=== PATIENT | male | born 1940 | race Caucasian/White ===

== ENCOUNTER 2016-08-27 17:42 | Observation (INO) | payer OTHER ==
--- NOTE | 2016-08-27 18:06 | EDPHY ---
H & P Time Seen by Provider: 08/27/16 18:05 HPI/ROS: Chief complaint. Chest pain HPI. 76-year-old male with history of coronary artery disease and coronary artery bypass in November 2015 presents with chest pain that waxes and wanes beginning at 2:00 p.m.. He notes symptoms seem to build up with belching and then be relieved. Slightly worse with full inspiration. Not worse with exertion. The pain is described as left anterior chest and sharp. No radiation. No shortness of breath. No abdominal pain. No leg symptoms. His symptoms are similar to his symptoms before his CABG in November. Last aspirin was last night an 81 mg. Patient has had similar symptoms since his bypass and it has been relieved on occasion by GI cocktail. However again he does say the symptoms are similar to his presentation in November when he had a CABG ROS Constitutional. no fever/chills, no weakness Eyes. no problems with vision ENT. no sore throat, no nasal drainage Cardiovascular. Chest pain Respiratory. no shortness of breath, no cough Abdominal. Belching but no abdominal pain vomiting or diarrhea . no problems urinating MS. no calf pain/swelling, no neck/back pain, no joint pain Skin. no rash Lymph. no swollen glands Neuro. no headache, no dizziness, no difficulty walking or with speech Past Medical/Surgical History: Past medical history is significant bladder cancer, kidney cancer, coronary artery bypass graft, hernia repair Social History: , nonsmoker, no alcohol Smoking Status: Former smoker Physical Exam: General Appearance: Alert well-developed male mild distress vital signs are stable Eyes: Pupils equal and round no pallor or injection. ENT, Mouth: Mucous membranes are moist. Respiratory: There are no retractions, lungs are clear to auscultation. Cardiovascular: Regular rate and rhythm. Gastrointestinal: Abdomen is soft and nontender, no masses, bowel sounds normal. Neurological: Awake and alert, sensory and motor exams grossly normal. Skin: Warm and dry, no rashes. Musculoskeletal: Neck is supple nontender. Extremities symmetrical, full range of motion. Psychiatric: Patient is oriented X 3, there is no agitation. Constitutional: Initial Vital Signs Temperature (C) 36.6 C 08/27/16 17:49 Heart Rate 55 L 08/27/16 17:49 Respiratory Rate 16 08/27/16 17:49 Blood Pressure 134/75 H 08/27/16 17:49 O2 Sat (%) 98 08/27/16 17:49 O2 Delivery Mode Room Air Allergies/Adverse Reactions: Penicillins Allergy (Unknown, Verified 11/25/15 20:37) Rash Home Medications: Medication Instructions Recorded Aspirin EC [Aspirin EC 81 mg (*)] 162 mg PO HS 08/27/16 Carvedilol [Coreg (*)] 3.125 mg PO BIDMEAL 08/27/16 Finasteride [Proscar 5 MG (*)] 5 mg PO DAILY@07 08/27/16 Folic Acid 0.4 mg PO HS 08/27/16 Herbals/Supplements -Info Only 1 ea PO DAILY 08/27/16 Ipratropium 0.03% Nasal [Atrovent 2 sprays EACHNARE DAILY PRN 08/27/16 0.03% Nasal (*)] [place]-3 Fatty Acids [Fish Oil 1000 1,000 mg PO BID@,08/27/16 mg (*)] Pravastatin Sodium 80 mg PO HS 08/27/16 Tamsulosin HCl [Flomax 0.4 MG (*)] 0.4 mg PO DAILY@18 08/27/16 Medical Decision Making - Diagnostics EKG Interpretation: EKG interpreted by me shows normal sinus rhythm with first-degree AV block. Left axis deviation. QRS is normal there is no significant ST elevation or depression. There is no arrhythmia. The rate is 54 Imaging Results: Chest x-ray reviewed by me is normal Procedures: IV normal saline, monitor. Aspirin in the emergency department. GI cocktail. ED Course/Re-evaluation: Re-evaluation at 7:40 p.m.--patient is stable. Patient seems to be somewhat better after the GI cocktail but continues to have waxing and waning chest discomfort. Patient, his , and I discussed laboratory imaging and EKG findings. We discussed treatment plan including recommendation for admission. They expressed understanding and agreement Differential Diagnosis: I have considered acute coronary syndrome as this patient has known coronary artery disease and had a coronary artery bypass graft in November 2015. He says his symptoms are similar to that presentation when he required CABG. I have considered pulmonary embolus, pneumonia, congestive heart failure as well. It is possible that there is a GI component to this as he has been burping. He has had successful treatment with GI cocktail in the past - Data Points Laboratory Results: Laboratory Results 08/27/16 18:25 08/27/16 18:25 Medications Given: Discontinued Medications Al Hydroxide/Mg Hydroxide (Maalox Susp) 30 ml PO ONCE ONE Stop: 08/27/16 18:50 Last Admin: 08/27/16 19:11 Dose: 30 ml Aspirin (Aspirin) 324 mg PO EDNOW ONE Stop: 08/27/16 18:50 Last Admin: 08/27/16 19:11 Dose: 324 mg Hyoscyamine Sulfate (Levsin, Hyomax-Sl) 0.25 mg PO ONCE ONE Stop: 08/27/16 18:50 Last Admin: 08/27/16 19:11 Dose: 0.25 mg Sodium Chloride (Ns) 1,000 mls @ 0 mls/hr IV ONCE ONE PRN Reason: Wide Open Stop: 08/27/16 18:50 Last Admin: 08/27/16 19:11 Dose: 1,000 mls Lidocaine (Lidocaine 2% Viscous) 15 ml PO ONCE ONE Stop: 08/27/16 18:50 Last Admin: 08/27/16 19:11 Dose: 15 ml Departure - Departure Disposition: [facility] Inpatient Acute Clinical Impression: Chest pain Qualifiers: Chest pain type: chest pain due to myocardial ischemia Condition: Good
--- NOTE | 2016-08-27 18:24 | CPEKG ---
Heart Rate: 54 RR Interval: 1111 P-R Interval: 252 QRSD Interval: 104 QT Interval: 452 QTC Interval: 429 P [place]: 55 QRS [place]: 13 T Wave [place]: 73 EKG Severity - ABNORMAL ECG - EKG Impression: SINUS RHYTHM EKG Impression: FIRST DEGREE AV BLOCK Electronically Signed By: Michael Ratliff 27-Aug-2016 20:24:27
[2016-08-27] MEDS ORDERED: HYOSCYAMINE SULFATE 0.125 MG TAB PO ONE (18:49)
[2016-08-27] MEDS ORDERED: MAG HYDROX/AL HYDROX/SIMETH 30 ML UDCUP PO ONE (18:49)
[2016-08-27] MEDS ORDERED: ASPIRIN 81 MG CHEWABLE TAB PO ONE (18:49)
[2016-08-27] MEDS ORDERED: LIDOCAINE 2% VISCOUS 15 ML UDCUP PO ONE (18:49)
[2016-08-27] MEDS ORDERED: NS 1,000 ML IV ONE (18:49)
[2016-08-27 18:54] LABS: % IMMATURE GRANULYOCYTES 0.4 % (0.0-1.1); ABSOLUTE IMMATURE GRANULOCYTES 0.03 10^3/uL (0.00-0.10); ADD DIFF? NO; ADD MORPH? NO; ADD SCAN? NO; ATYPICAL LYMPHOCYTE FLAG 10 (0-99); FRAGMENT RBC FLAG 0 (0-99); HEMATOCRIT 44.5 % (40.0-51.0); LEFT SHIFT FLG 0 (0-99); LIPEMIA HEMOLYSIS FLAG 80 (0-99); MEAN CELL HEMOGLOBIN 30.2 pg (27.9-34.1); MEAN CELL HEMOGLOBIN CONCENTR. 33.7 g/dL (32.4-36.7); MEAN CELL VOLUME 89.7 fL (81.5-99.8); MEAN PLATELET VOLUME 10.2 fL (8.7-11.7); PLATELET CLUMPS FLAG 0 (0-99); PLATELET COUNT 172 10^3/uL (150-400); RED BLOOD CELL COUNT 4.96 10^6/uL (4.40-6.38); RED CELL DISTRIBUTION WIDTH 12.7 % (11.5-15.2)
[2016-08-27 19:09] LABS: ANION GAP 8 mEq/L (8-16); CALCIUM 9.3 mg/dL (8.5-10.4); CARBON DIOXIDE 28 mEq/l (22-31); CHLORIDE 101 mEq/L (97-110); CREATININE 1.1 mg/dL (0.7-1.3); GLOMERULAR FILTRATION RATE > 60; GLUCOSE 80 mg/dL (70-100); POTASSIUM 3.9 mEq/L (3.5-5.2); SODIUM 137 mEq/L (134-144)
[2016-08-27 19:19] LABS: TROPONIN I < 0.012 ng/mL (0-0.034)
[2016-08-27] MEDS ORDERED: ONDANSETRON DISINTEGRATING 4 MG TAB PO PRN (21:13)
[2016-08-27] MEDS ORDERED: ONDANSETRON 4 MG/2 ML VIAL IVP PRN (21:13)
[2016-08-27] MEDS ORDERED: ACETAMINOPHEN 325 MG TAB PO PRN (21:13)
[2016-08-27] MEDS ORDERED: IPRATROPIUM 0.03% NASAL SPRAY EACHNARE PRN (22:00)
--- NOTE | 2016-08-27 22:27 | GHP ---
[f rep st] HISTORY AND PHYSICAL DATE OF ADMISSION: 08/27/2016 CHIEF COMPLAINT: Chest pain. HISTORY OF PRESENT ILLNESS: A 76-year-old male with a complicated cardiac history, including CABG 3 vessel in 1999 and a revascularization performed 11/[address] Mchgee. The patient additionally galeano s mild ischemic cardiomyopathy, functional mitral regurgitation. The patient returned from an inter national trip to [place] and [facility] 48 hours ago, was quite exhausted and jet lagged, stayed home an d relaxed yesterday and this afternoon approximately 3:30 had sudden onset of substernal chest disco mfort that he describes as beginning as sharp and then becoming dull. The patient describes pain as intermittent, could not clearly define an exacerbating or alleviating factor beyond pain medications provided in the emergency department. The patient did not note if pain worsening during ambulation to get to the ER. The patient has been compliant with his cardiac medications and very compliant wi th his cardiac rehabilitation since his last revascularization. He does note that he has not been do ing his normal exercise regimen while traveling these last several weeks, however was quite active a nd ambulating throughout the trip. The patient denies any concurrent shortness of breath, any dizzin ess, lightheadedness, palpitations, nausea or vomiting. Denies any orthopnea, any PND, any lower ex tremity edema. Denies any diarrhea, dysuria, hematuria or changes in his bowel habits. The patient does note he has had decreased oral intake of fluids from what he typically takes at home but feels it has been adequate. PAST MEDICAL HISTORY: 1. Coronary artery disease, status post multiple PCIs and a CABG 3 vessel x2, originally in 1999 an d then a redo in 2015. 2. Obstructive sleep apnea. 3. History of renal cancer, status post left nephrectomy in 1997. 4. Bladder cancer, status post TURP in 2013. 5. Atrial tachycardia, status post catheter-based ablation 2011. 6. Chronic venous insufficiency. 7. Right ulnar neuropathy, status post right elbow ulnar nerve transposition surgery in 2015. 8. Mild ischemic cardiomyopathy. 9. Postoperative paroxysmal atrial fibrillation. 10. Nonobstructive carotid artery disease. SOCIAL HISTORY: Negative for tobacco. Very rare alcohol. No illicit drugs or marijuana. FAMILY HISTORY: Positive for cancer. He does not believe heart disease runs in his family. ADVANCE DIRECTIVES: He is full cor, full tube. His would be his medical decision maker. REVIEW OF SYSTEMS: A 10-point review of systems is negative with the exception of that reported in the HPI. PHYSICAL EXAMINATION: VITAL SIGNS: Blood pressure 136/73, heart rate 48, respiratory rate 20, 95% on room air. GENERAL: This is a healthy-appearing elderly male in no acute distress. HEENT: Notab le for moist mucous membranes. Eyes: Negative for any icterus. CARDIAC: Patient's heart sounds ar e distant. They sound regular. PULMONARY: He has good respiratory effort, is clear to auscultation bilaterally. GASTROINTESTINAL: Positive bowel sounds. ABDOMEN: Soft and nontender in all 4 quadran ts. MUSCULOSKELETAL: Negative for any lower extremity edema. SKIN: Negative for any rashes. NEUR OLOGIC: He is alert and oriented x3. PSYCHIATRIC: He is pleasant and cooperative on interview and examination. DATA: EKG, which I personally reviewed and interpreted, shows sinus rhythm, normal axis, normal int ervals, right bundle branch block is noted and 1st degree AV block, both of which have been seen on previous EKGs. No acute ST-T changes are appreciated. White count is 7. Creatinine is 1.1 which is h is baseline. Troponin is less than 0.012. Chest x-ray, which I personally reviewed and interpreted , shows no acute infiltrates or edema. ASSESSMENT AND PLAN: This is a 76-year-old male with a history of coronary artery disease, status p ost coronary artery bypass graft and coronary artery bypass graft revision/redo in 2016, presenting with complaints of chest pain. 1. Acute chest pain with an advanced coronary artery disease history. Patient will be admitted. Ser ial troponins and EKGs will be followed with the patient on telemetry. The patient will be made n.p .o. after midnight in case cardiology is interested in arteriography in the morning. Currently is pr esenting with a negative troponin and EKG which is reassuring. 2. Obstructive sleep apnea. Can continue CPAP therapy this evening. 3. Mild ischemic cardiomyopathy. The patient appears clinically compensated at the time of his pre sentation. Will continue to monitor. 4. Benign prostatic hypertrophy. Will continue the patient's finasteride. As well as tamsulosin. 5. Hyperlipidemia. We will continue a statin therapy. 6. History of bladder and renal carcinoma, both are stable. 7. Prophylaxis: I am going to use heparin subcu, shorter half-life, in case patient is taken to the cheesemaking laborer in the morning. 8. Diet: Cardiac and n.p.o. after midnight. DISPOSITION: I expect in greater than 2 midnights. Patient has a very complicated cardiac and medi kala history requiring diagnostic workup and suspected angiographic evaluation in the morning. I hav e discussed the case with the emergency room physician. Patient will be triaged to the medical-surg [facility] floor for care. /[id number]/MODL
[2016-08-27] MEDS: HEPARIN 5,000 UNIT/0.5 ML SYR SC SCH (23:42)
[2016-08-28 03:23] LABS: ANION GAP 6 mEq/L (8-16); CALCIUM 8.7 mg/dL (8.5-10.4); CARBON DIOXIDE 27 mEq/l (22-31); CHLORIDE 107 mEq/L (97-110); GLOMERULAR FILTRATION RATE > 60; GLUCOSE 95 mg/dL (70-100); POTASSIUM 4.4 mEq/L (3.5-5.2); SODIUM 140 mEq/L (134-144)
[2016-08-28] MEDS: HEPARIN 5,000 UNIT/0.5 ML SYR SC SCH (06:26)
[2016-08-28] MEDS ORDERED: FINASTERIDE 5 MG TAB PO SCH (07:00)
[2016-08-28] MEDS ORDERED: OMEGA-3 FATTY ACIDS 1,000 MG CAP PO SCH (07:00)
[2016-08-28 07:41] VITALS: PULSE 52
[2016-08-28] MEDS ORDERED: CARVEDILOL 3.125 MG TAB PO SCH (08:00)
[2016-08-28] MEDS ORDERED: Herbals/Supplements -Info Only PO SCH (09:00)
--- NOTE | 2016-08-28 11:06 | SOAPPROG ---
[facility] Progress Note Assessment/Plan: Assessment: 1. Atypical chest discomfort. 2. Known cardiovascular disease as described above. 3. Hypertension. 4. Hyperlipidemia. He presents with atypical chest discomfort. Historically, his symptoms are most consistent with dyspepsia. In light of his extensive cardiovascular disease we do, however, need to maintain a high index of suspicion for recurrent ischemia. At this point, his cardiac enzymes are negative and the ECG is unremarkable. At the time of this dictation he is undergoing an echocardiogram. Plan: 1. I would like to review his echocardiogram. 2. I did order another troponin and an ECG. 3. Provided that the above studies are unremarkable I think that he can be discharged home with close clinical follow-up. 4. We will help facilitate an early Lexiscan myocardial perfusion imaging study which can be performed in our office. 5. I did not make any changes to his medications. 08/28/16 11:08 Subjective: The patient was seen and examined. His chart was reviewed. He is typically followed as an outpatient by Dr. Denis Teixeira. He has a history of known coronary artery disease which dates back at least 20 years. Initially, he was treated with multiple PCIs. In 1999 he underwent multivessel bypass surgery which was performed by Dr. Montaño. Between the years 1999 and 2015 he apparently required repeat revascularization with PCI and stenting. In December of 2015 he presented with chest discomfort. Angiography demonstrated multivessel recurrent CAD and the need for repeat bypass surgery. He underwent redo CABG with placement of the DONAL to the LAD, a free radial graft to the diagonal branch and a 2nd free radial graft to the circumflex. Historically, he has also had atrial tachycardia. He has undergone ablation for this arrhythmias in the past. Has never had a history of LV dysfunction, valvular heart disease, atrial fibrillation or congestive heart failure. He was admitted yesterday late afternoon with symptoms of chest discomfort. For the last 3 weeks he has been in [place] to ring through [place]. Returned on Tuesday evening. He has been suffering a little bit of jet leg ever since. Beginning about 3 or 4 o'clock yesterday afternoon he developed epigastric discomfort associated with increased belching. He also developed a slight discomfort immediately to the left of his sternum. He had no associated shortness of breath, nausea, vomiting or diaphoresis. The pain was not respiratory phasic. He denies fever, chills and sweats. His discomfort continued in a waxing and waning fashion. Ultimately he came to the emergency department. On arrival he was hemodynamically stable. An ECG was performed during active chest discomfort which was essentially unchanged from those reviewed from our office visits in the past. Had normal sinus rhythm, a right bundle branch block and minor nonspecific ST and T changes. Was placed in the EACU. Sequential cardiac enzymes were drawn. His last troponin was at 3 o' clock this morning which was noted to be normal. He states he currently feels back to normal. He is belching a little bit although is not having any chest discomfort. His current clinical presentation is different than his angina in the past. Objective: Vital Signs Temp Pulse Resp BP Pulse Ox 36.7 C 52 L 14 116/69 96 08/28/16 07:39 08/28/16 07:39 08/28/16 07:39 08/28/16 07:39 08/28/16 07:39 Laboratory Results 08/28/16 03:00 08/27/16 08/28/16 08/29/16 05:59 05:59 05:59 Intake Total 1000 Output Total 500 Balance 500 Laboratory Tests 08/27/16 08/27/16 08/28/16 18:25 18:25 03:00 D-Dimer < 0.27 Troponin I < 0.012 < 0.012 Lipase 26.0 Physical Exam - Physical Exam General Appearance: WD/WN, no apparent distress Neck: non-tender, full range of motion Respiratory: lungs clear Cardiac/Chest: regular rate, rhythm, other (He has a well-healed midline sternotomy incision.), No edema, No gallop, No JVD Peripheral Pulses: 2+: carotid (R), carotid (L) Abdomen: normal bowel sounds, soft Male Genitalia: deferred Rectal: deferred Back: Normal inspection Skin: normal color, warm/dry Extremities: other (Varicose veins are noted), No pedal edema, No calf tenderness Neuro/Psych: alert, normal mood/affect, oriented x 3 ICD10 Worksheet Patient Problems: Problems Problem Status Onset CAD (coronary artery disease) of bypass graft Acute Chest pain Acute S/P CABG x 3 Acute 11/26/15 CAD (coronary artery disease), ely [place] coronary artery Chronic STANLEY on CPAP Chronic
[2016-08-28 11:57] VITALS: BP 123/76; RESP 21; TEMP 98.4; O2SAT 93
--- NOTE | 2016-08-28 12:27 | ECHO ---
[id number] + + [address] : : [place] [address] : : [phone] + + Adult Echocardiographic Report + + :Name: DONAL HUFFMAN Date: 08/28/2016 11:47 AM BP: 116/69 mmHg : : Hospital Admission Number: [id number] Lo cation: 144: :: 1940 Gender: Male : :Age: 76 yrs Race: ANDREINA,White : :History: CABG X 2 : + + MMode/2D Measurements \T\ Calculations IVSd: 0.96 cm LVIDd: 5.7 cm FS: 28.4 % Ao root diam: LVPWd: 0.93 cm LVIDs: 4.1 cm EDV(Teich): 3.5 cm 157.5 ml LA dimension: ESV(Teich): 4.5 cm 72.1 ml EF(Teich): 54.2 % LVLd ap4: 9.7 cm SV(MOD-sp4): EDV(MOD-sp4): 79.0 ml 160.0 ml LVLs ap4: 8.2 cm ESV(MOD-sp4): 81.0 ml EF(MOD-sp4): 49.4 % Normal Measurement Values: + + :LVIDd (3.5-5.7cm) IVSd (0.6-1.1cm) LVPWd (0.6-1.1cm) Aortic Root (2.0-3.7cm)Left Atrium (1.5-4.0cm): :LV Vol(d) (76-115ml) LV Vol(s) (29-48ml) Ejec Fraction (50-65%)PV Mike (0.6- 1.2m/s) TV Mike (0.4-1.0m/s) : :MV E Mike (0.8-1.0m/s)MV A Mike (0.3-1.0m/s)LVOT Mike (0.7-1.2m/s) Asc Ao Mike ( 0.9-1.8m/s) : + + Doppler Measurements \T\ Calculations MV E max mike: Ao V2 max: LV V1 max: PA V2 max: 80.5 cm/sec 119.0 cm/sec 80.9 cm/sec 93.4 cm/sec MV A max mike: Ao max P.7 mmHgLV V1 max PG: PA max P.6 cm/sec 2.6 mmHg 3.5 mmHg MV E/A: 1.2 MV dec time: 0.14 sec TR max mike: 311.0 cm/sec TR max P.7 mmHg RAP systole: 5.0 mmHg RVSP(TR): 43.7 mmHg Left Ventricle The left ventricle is normal in size. There is normal left ventricular wall thickness. Left ventricular systolic function is low normal. Ejection Fraction = 50-55%. No regional wall motion abnormalities noted. Right Ventricle The right ventricle is normal size. The right ventricular systolic function is normal. Atria The left atrial size is normal. Right atrial size is normal. Mitral Valve The mitral valve leaflets appear thickened, but open well. There is no mitral valve stenosis. There is mild to moderate mitral regurgitation. Tricuspid Valve The tricuspid valve is normal in structure and function. There is no tricuspid stenosis. There is mild tricuspid regurgitation. Right ventricular systolic pressure is 44mmHg. There is Doppler evidence for mild pulmonary hypertension. Aortic Valve The aortic valve is trileaflet. Mild aortic leaflet sclerosis without stenosis. There is no aortic stenosis. There is no aortic insufficiency. Pulmonic Valve The pulmonic valve is not well visualized. Great Vessels The aortic root is normal size. Pericardium/Pleural There is no pericardial effusion. Conclusion A two-dimensional transthoracic echocardiogram with M-mode and Doppler was performed. The study was technically difficult. Left ventricular systolic function is low normal. Ejection Fraction = 50-55%. Normal wall motion. Normal appearing cardiac valves. There is mild to moderate mitral regurgitation. There is mild tricuspid regurgitation. Right ventricular systolic pressure is 44mmHg. Final Reading Physician: Christiano Miranda signed on 08/28/2016 12:26 PM Ordering Physician: Christiane Adams
--- NOTE | 2016-08-28 12:53 | CPEKG ---
Heart Rate: 55 RR Interval: 1091 P-R Interval: 248 QRSD Interval: 102 QT Interval: 464 QTC Interval: 444 P [place]: 60 QRS [place]: 5 T Wave [place]: 71 EKG Severity - ABNORMAL ECG - EKG Impression: SINUS RHYTHM EKG Impression: RSR' V1-V2 EKG Impression: FIRST DEGREE AV BLOCK Electronically Signed By: Camila Sanchez 28-Aug-2016 13:54:11
[2016-08-28] MEDS ORDERED: TAMSULOSIN HCL 0.4 MG CAP PO SCH (18:00)
[2016-08-28] MEDS ORDERED: ASPIRIN EC 81 MG TAB PO SCH (21:00)
[2016-08-28] MEDS ORDERED: FOLIC ACID 0.4 MG PO SCH (21:00)
[2016-08-28] MEDS ORDERED: FOLIC ACID 1 MG TAB PO SCH (21:00)
[2016-08-28] MEDS ORDERED: PANTOPRAZOLE SODIUM 40 MG TAB PO SCH (21:00)
[2016-08-28] MEDS ORDERED: NON-FORMULARY NEW DRUG (Pravastatin Sodium [Pravastatin Sodium] 80 MG) PO SCH (21:00)
[2016-08-28] MEDS ORDERED: PRAVASTATIN SODIUM 40 MG TAB PO SCH (21:00)
--- NOTE | 2016-08-29 06:06 | GDS ---
[f rep st] DISCHARGE SUMMARY DISCHARGE DIAGNOSES: 1. Chest pain, resolved. 2. Coronary artery disease, status post multiple PCIs and a 3-vessel coronary artery bypass graft x 2 in 2000 and again in 2016. 3. Obstructive sleep apnea. 4. Mild ischemic cardiomyopathy. 5. Hyperlipidemia. IMAGING/PROCEDURES: Echocardiogram August 28, 2016 showed low-normal left ventricular systolic functio n with ejection fraction of 50% to 55%. No wall motion abnormalities. Mild to moderate mitral regu rgitation and a right ventricular systolic pressure of 44. CONSULTANTS: Dr. Avelino Lopez, Cardiology. HISTORY: For details please see dictated history and physical dated August 27, 2016. In brief, the shannon keith is a 76-year-old male with a history of coronary artery disease with prior interventions as ab ove, who presents to the emergency department with chest pain. He is admitted to the hospital for f urther management. HOSPITAL COURSE: The patient admitted to the observation unit. He received a full-dose aspirin. H is EKG was nonischemic. There were no evolutionary changes on his repeat EKG. He had negative trop onins x3. Echocardiogram was negative for any wall motion abnormality. Cardiology consult was arthur hollingsworth, who felt the patient was stable for discharge home and will have outpatient cardiac stress rajni ting at [facility]. DISPOSITION: Patient is discharged home in stable condition. FOLLOWUP: 1. Dr. Denis Teixeira MD, cardiology at [facility]. 2. Dr. Vernon Gaitan, primary care provider. DISCHARGE MEDICATIONS: Please see [facility] for complete updated outpatient medication list. Eladiadaniel raúl will continue all outpatient medications as previously prescribed. There are new medications at d ischarge. /[id number]/MODL
== END 2016-08-28 14:30 | disposition home or self-care (01) ==
LOC: F1N 22:01
PROVIDERS: ADMIT Hospitalist; ATTEND Hospitalist
DX: R07.89 Other chest pain (principal); I25.10 Atherosclerotic heart disease of native coronary artery without angina pectoris; I10 Essential (primary) hypertension; I25.5 Ischemic cardiomyopathy; E78.5 Hyperlipidemia, unspecified; G47.33 Obstructive sleep apnea (adult) (pediatric); N40.0 Benign prostatic hyperplasia without lower urinary tract symptoms; I87.2 Venous insufficiency (chronic) (peripheral); Z95.1 Presence of aortocoronary bypass graft; Z85.51 Personal history of malignant neoplasm of bladder; Z85.528 Personal history of other malignant neoplasm of kidney; Z88.0 Allergy status to penicillin
CPT/HCPCS: 71010; 93005; 93306; 96360; 99285; G0378

== ENCOUNTER → 2016-09-09 | Outpatient (CLI) | payer OTHER | LOC: BHFA 09:00 | PROVIDERS: ATTEND Internal Medicine Cardiovascular Disease | DX: R07.9 Chest pain, unspecified (principal) | CPT/HCPCS: 78452; 93017; A9500; J2785 ==